=== PATIENT | male | born 1985 | race Asian ===

== ENCOUNTER 2022-02-13 04:20 | Day surgery (SDC) | payer OTHER ==
[2022-02-08 15:11] VITALS: BMI 34.7
[2022-02-13 12:04] LABS: PH,URINE 5.5 (5.0-8.0); URINE APPEARANCE CLEAR; URINE BILIRUBIN NEGATIVE (NEGATIVE); URINE COLOR YELLOW; URINE GLUCOSE (UA) NEGATIVE (NEGATIVE); URINE KETONE NEGATIVE (NEGATIVE); URINE LEUK ESTERASE NEGATIVE (NEGATIVE); URINE NITRITE NEGATIVE (NEGATIVE); URINE PROTEIN NEGATIVE (NEGATIVE); URINE UROBILINOGEN 0.2 mg/dL (0.2-1.0)
[2022-02-13] MEDS ORDERED: LIDOCAINE HCL 1%, 10 MG/ML (20ML VIAL) ONE (12:52)
[2022-02-13] MEDS ORDERED: METHYLENE BLUE 50 MG/10 ML AMPUL ONE (12:52)
[2022-02-13] MEDS ORDERED: LIDOCAINE HCL/PF 2% SDV 5ML VIAL ONE (14:26)
[2022-02-13] MEDS ORDERED: DEXAMETHASONE SOD PHOSPHATE 4 MG/1 ML VIAL ONE ×2 (14:26→14:27)
[2022-02-13] MEDS ORDERED: MIDAZOLAM HCL 2 MG/2 ML SINGLE DOSE VIAL ONE (14:27)
[2022-02-13] MEDS ORDERED: PROPOFOL 20 ML ONE (14:27)
[2022-02-13] MEDS ORDERED: ISOSULFAN BLUE 50 MG/5 ML VIAL SQ ONE (14:43)
[2022-02-13] MEDS ORDERED: ceFAZolin SODIUM 1 GM VIAL IVPB ONE (14:47)
[2022-02-13] MEDS ORDERED: ceFAZolin SODIUM 1 GM VIAL ONE (14:56)
[2022-02-13] MEDS ORDERED: ACETAMINOPHEN INJECTION 100 ML IVPB ONE (15:47)
[2022-02-13] MEDS ORDERED: KETOROLAC TROMETHAMINE 30 MG/1 ML VIAL ONE (16:31)
[2022-02-13] MEDS ORDERED: oxyCODONE HCL 5 MG TABLET PO PRN (18:16)
[2022-02-13] MEDS ORDERED: ONDANSETRON 4 MG/2 ML VIAL IVPUSH PRN (18:16)
[2022-02-13] MEDS ORDERED: LACTATED RINGERS SOLUTION 1,000 ML IV SCH (18:30)
[2022-02-13 18:47] VITALS: TEMP 98.2
[2022-02-13 18:48] VITALS: BP 122/78; PULSE 70
== END 2022-02-13 18:43 | disposition home or self-care (01) ==
LOC: JASU-SURG 04:20
PROVIDERS: ATTEND Surgery
PROC: 0HTT0ZZ Resection of Right Breast, Open Approach (ICD-10-PCS; principal; 2022-02-13 13:00)
DX: C50.921 Malignant neoplasm of unspecified site of right male breast (principal)
CPT/HCPCS: 78195-TC; 81003; 88307-TC; 88309-TC; 88342-TC; 94760; A9541; Q9968